=== PATIENT | male | born 1985 | race Two or more races ===

== ENCOUNTER 2024-09-03 08:05 | Emergency (ER) | payer OTHER ==
[~2024-09-03] VITALS: Ht 215.9 cm; Wt 113.4 kg
[2024-09-03] MEDS ORDERED: KETOROLAC TROMETHAMINE 60 MG VIAL IM STA (09:28)
[2024-09-03] MEDS ORDERED: DEXAMETHASONE SODIUM PHOSPHATE 4 MG/ML VIAL IM STA (09:29)
[2024-09-03] MEDS ORDERED: KETOROLAC TROMETHAMINE 60 MG VIAL IM ONE (09:32)
[2024-09-03] MEDS ORDERED: DEXAMETHASONE SODIUM PHOSPHATE 4 MG/ML VIAL ONE (09:32)
[2024-09-03 10:14] LABS: BASO % 0.8 % (0.1-1.2); EOS # 0.12 (0.04-0.54); EOS % 1.9 % (0.7-7.0); HEMATOCRIT 40.7 % (40.1-51.0); HEMOGLOBIN 14.1 g/dL (13.7-17.5); LYMPH # 1.54 (1.18-3.74); LYMPH % 24.1 % (19.3-53.1); MEAN CORPUSCULAR HEMOGLOBIN 29.3 pg (25.6-32.2); MONO # 0.43 (0.24-0.82); MONO % 6.7 % (4.7-12.5); NEUT # 4.22 (1.56-6.13); PLATELET COUNT 193 K/uL (163-369); RED BLOOD COUNT 4.82 M/uL (4.63-6.08); RED CELL DISTRIBUTION WIDTH 13.5 % (11.6-14.4)
[2024-09-03] MEDS ORDERED: KETO10TA2 PO (12:24)
[2024-09-03] MEDS ORDERED: INTESTINEX680 M1 PO (12:24)
[2024-09-03] MEDS ORDERED: AMOX-CLAV 875-1 EACH PO (12:24)
[2024-09-03] MEDS ORDERED: CEFTRIAXONE SODIUM 1,000 MG VIAL IM STA (12:25)
[2024-09-03] MEDS ORDERED: CEFTRIAXONE SODIUM 1,000 MG VIAL ONE (12:38)
== END 2024-09-03 13:57 | disposition home or self-care (01) ==
LOC: ER 09:08
PROVIDERS: General Practice
DX: M25.522 Pain in left elbow (principal)

== ENCOUNTER 2025-03-24 14:00 | Outpatient (CLI) | payer OTHER ==
[~2025-03-24 14:00] MED LIST: AMOX-CLAV 875-1 EACH PO; INTESTINEX680 M1 PO; KETO10TA2 PO
== END 2025-03-24 14:10 | disposition home or self-care (01) ==
LOC: PPH VACUNA 14:00
PROVIDERS: ATTEND Emergency Medicine Pediatric Emergency Medicine
DX: Z23 Encounter for immunization (principal)